=== PATIENT | female | born 1950 | race Caucasian/White ===

== ENCOUNTER 2022-07-31 04:24 | Day surgery (SDC) | payer OTHER, BC ==
[2022-07-31 07:39] VITALS: BMI 33.4
[2022-07-31] MEDS ORDERED: ONDANSETRON 4 MG/2 ML VIAL IVPUSH PRN (09:25)
[2022-07-31] MEDS ORDERED: oxyCODONE HCL 5 MG TABLET PO PRN (09:25)
[2022-07-31] MEDS ORDERED: LACTATED RINGERS SOLUTION 1,000 ML IV SCH (09:30)
[2022-07-31] MEDS ORDERED: MIDAZOLAM HCL 2 MG/2 ML SINGLE DOSE VIAL ONE ×2 (10:24→10:59)
[2022-07-31] MEDS ORDERED: PROPOFOL 40 ML ONE (10:24)
[2022-07-31] MEDS ORDERED: GLYCOPYRROLATE 0.2 MG/1 ML VIAL ONE (10:25)
[2022-07-31] MEDS ORDERED: DEXAMETHASONE SOD PHOSPHATE 4 MG/1 ML VIAL ONE (10:26)
[2022-07-31] MEDS ORDERED: ONDANSETRON 4 MG/2 ML VIAL ONE (10:26)
[2022-07-31] MEDS ORDERED: LIDOCAINE HCL/PF 2% SDV 5ML VIAL ONE (11:00)
[2022-07-31 12:39] VITALS: RESP 20
[2022-07-31 13:10] VITALS: BP 152/80; PULSE 80; TEMP 97
== END 2022-07-31 13:13 | disposition home or self-care (01) ==
LOC: JASU-SURG 04:24
PROVIDERS: ATTEND Obstetrics & Gynecology
PROC: 0UB98ZZ Excision of Uterus, Via Natural or Artificial Opening Endoscopic (ICD-10-PCS; principal; 2022-07-31 09:00)
DX: D25.0 Submucous leiomyoma of uterus (principal)
CPT/HCPCS: 88305-TC; 94760